=== PATIENT | female | born 1950 | race African-American/Black ===

== ENCOUNTER → 2022-09-03 | Outpatient (CLI) | payer OTHER ==
[~2022-09-03] MED LIST: CEPH500C PO; TRAM-297 PO
[2022-09-03 10:21] LABS: Basophils # (auto) 0 10 ^3/uL (0-0.2); Basophils % (auto) 1.1 % (0.0-2.0); Eosinophils # (auto) 0.4 10 ^3/uL (0-0.8); Eosinophils % (auto) 8.8 % (0.0-7.0); Hematocrit 37.6 % (36.0-46.0); Hemoglobin 12.5 g/dL (12.2-16.2); Lymphocytes # (auto) 1.4 10 ^3/uL (0.4-5.4); Lymphocytes % (auto) 31.7 % (10.0-50.0); Mean Corpuscular Hemoglobin 28.3 pg (28.0-32.0); Mean Corpuscular Hgb Conc. 33.2 g/dL (32.0-36.0); Mean Corpuscular Volume 85.2 fL (80.0-100.0); Monocytes # (auto) 0.4 10 ^3/uL (0-1.3); Monocytes % (auto) 8.9 % (0.0-12.0); Neutrophils # (auto) 2.2 10 ^3/uL (1.6-8.6); Neutrophils % (auto) 49.5 % (37.0-80.0); Nucleated Red Blood Cells % 0.1 %; Red Blood Cells 4.42 10^6/uL (4.0-5.20); White Blood Cell 4.4 10^3/uL (4.4-10.8)
[2022-09-03 10:40] LABS: Urine Bacteria NONE SEEN /hpf (None Seen); Urine Blood Negative /uL (Negative); Urine Mucus FEW (None Seen); Urine Specific Gravity 1.024 (1.001-1.035); Urine WBC 2 /hpf (0 - 5)
[2022-09-03 11:06] LABS: Potassium 3.5 mmol/L (3.5-5.1)
[2022-09-03 11:12] LABS: Folate (Folic Acid) 11.81 ng/mL (5.38-24)
[2022-09-03 11:16] LABS: Albumin 3.6 g/dL (3.4-5.0); BUN/Creatinine Ratio 17.9 (10.0-20.0); Bilirubin, Total 0.8 mg/dL (0.2-1.0); Magnesium 2.3 mg/dL (1.6-2.6); Total Protein 7.9 g/dL (6.4-8.2); Uric Acid 3.7 mg/dL (2.6-6.0)
== END | disposition home or self-care (01) ==
LOC: LAB 09:51
PROVIDERS: ATTEND Internal Medicine
DX: I10 Essential (primary) hypertension (principal); E03.9 Hypothyroidism, unspecified; M32.9 Systemic lupus erythematosus, unspecified; M17.9 Osteoarthritis of knee, unspecified; M19.012 Primary osteoarthritis, left shoulder; M77.9 Enthesopathy, unspecified; G43.909 Migraine, unspecified, not intractable, without status migrainosus; M19.90 Unspecified osteoarthritis, unspecified site; N39.0 Urinary tract infection, site not specified; M65.312 Trigger thumb, left thumb; N89.8 Other specified noninflammatory disorders of vagina
CPT/HCPCS: 36415; 80053; 80061; 81001; 82306; 82607; 82746; 83036; 83735; 84443; 84550; 85025; 87086

== ENCOUNTER 2022-09-04 09:33 | Emergency (ER) | payer OTHER ==
[~2022-09-04] VITALS: Ht 170.2 cm; Wt 81.4 kg
[~2022-09-04 09:33] MED LIST changes: -CEPH500C PO
[2022-09-04 10:20] VITALS: BP 121/76
[2022-09-04] MEDS ORDERED: CEPH500C PO (10:23)
== END 2022-09-04 10:35 | disposition home or self-care (01) ==
LOC: ER 09:33
DX: S91.011A Laceration without foreign body, right ankle, initial encounter (principal); J45.909 Unspecified asthma, uncomplicated; I10 Essential (primary) hypertension; W26.8XXA Contact with other sharp object(s), not elsewhere classified, initial encounter; Y93.9 Activity, unspecified; Y92.89 Other specified places as the place of occurrence of the external cause; Y99.8 Other external cause status

== ENCOUNTER → 2022-12-06 | Outpatient (CLI) | payer OTHER ==
[~2022-12-06] MED LIST changes: +CEPH500C PO
[2022-12-06 09:12] LABS: Basophils # (auto) 0 10 ^3/uL (0-0.2); Basophils % (auto) 0.8 % (0.0-2.0); Eosinophils # (auto) 0.5 10 ^3/uL (0-0.8); Eosinophils % (auto) 10.8 % (0.0-7.0); Hematocrit 37.8 % (36.0-46.0); Hemoglobin 12.4 g/dL (12.2-16.2); Lymphocytes # (auto) 1.5 10 ^3/uL (0.4-5.4); Mean Corpuscular Hemoglobin 28.3 pg (28.0-32.0); Mean Corpuscular Hgb Conc. 32.7 g/dL (32.0-36.0); Mean Corpuscular Volume 86.6 fL (80.0-100.0); Monocytes # (auto) 0.4 10 ^3/uL (0-1.3); Monocytes % (auto) 8.4 % (0.0-12.0); Neutrophils # (auto) 2.1 10 ^3/uL (1.6-8.6); Red Blood Cells 4.36 10^6/uL (4.0-5.20); White Blood Cell 4.5 10^3/uL (4.4-10.8)
[2022-12-06 09:23] LABS: Urine Bacteria FEW /hpf (None Seen); Urine Blood TRACE /uL (Negative); Urine Clarity HAZY (Clear); Urine Color Yellow (Yellow); Urine Mucus FEW (None Seen); Urine Protein, UAD TRACE (Negative); Urine WBC 3 /hpf (0 - 5)
[2022-12-06 09:48] LABS: Alanine Aminotransferase 20 U/L (7-40); Albumin 4.1 g/dL (3.2-4.8); Alkaline Phosphatase 86 U/L (46-116); Anion Gap 6 (5-15); Aspartate Aminotransferase 25 U/L (13-40); Calcium 9.3 mg/dL (8.5-10.1); Carbon Dioxide 28 mmol/L (20-30); Chloride 108 mmol/L (98-107); Cholesterol 141 mg/dL (< 200); Glucose 85 mg/dL (74-106); LDL Cholesterol 87 mg/dL (< 100); Potassium 3.5 mmol/L (3.5-5.1); Sodium 142 mmol/L (136-145)
[2022-12-06 09:49] LABS: BUN/Creatinine Ratio 17.2 (10.0-20.0); Blood Urea Nitrogen 11 mg/dL (9-23); HDL Cholesterol 45 mg/dL (40-59); Triglycerides 55 mg/dL (< 150)
[2022-12-06 09:50] LABS: Bilirubin, Total 0.7 mg/dL (0.2-1.0)
[2022-12-06 09:51] LABS: Total Protein 7.3 g/dL (5.7-8.2)
[2022-12-06 12:25] LABS: Uric Acid 3.8 mg/dL (3.1-7.8)
[2022-12-06 13:59] LABS: Folate (Folic Acid) 17.85 ng/mL (>5.38)
== END | disposition home or self-care (01) ==
LOC: LAB 08:37
PROVIDERS: ATTEND Internal Medicine
DX: E61.2 Magnesium deficiency (principal); R78.89 Finding of other specified substances, not normally found in blood; R68.89 Other general symptoms and signs; R73.09 Other abnormal glucose; R94.6 Abnormal results of thyroid function studies; E79.0 Hyperuricemia without signs of inflammatory arthritis and tophaceous disease; E85.9 Amyloidosis, unspecified; R82.90 Unspecified abnormal findings in urine; D51.9 Vitamin B12 deficiency anemia, unspecified
CPT/HCPCS: 36415; 80053; 80061; 81001; 82306; 82607; 82746; 83036; 83735; 84443; 84550; 85025; 87086

== ENCOUNTER → 2023-09-05 | Outpatient (CLI) | payer OTHER ==
[2023-09-05 09:07] LABS: Urine Bacteria None Seen /hpf (None Seen)
[2023-09-05 09:09] LABS: Basophils # (auto) 0 10 ^3/uL (0-0.2); Eosinophils # (auto) 0.5 10 ^3/uL (0-0.8); Eosinophils % (auto) 5.9 % (0.0-7.0); Hematocrit 35.7 % (36.0-46.0); Hemoglobin 12.1 g/dL (12.2-16.2); Lymphocytes # (auto) 0.5 10 ^3/uL (0.4-5.4); Lymphocytes % (auto) 7.1 % (10.0-50.0); Mean Corpuscular Hemoglobin 29.1 pg (28.0-32.0); Mean Corpuscular Hgb Conc. 33.8 g/dL (32.0-36.0); Mean Corpuscular Volume 86.3 fL (80.0-100.0); Monocytes # (auto) 1.5 10 ^3/uL (0-1.3); Neutrophils # (auto) 5.2 10 ^3/uL (1.6-8.6); Nucleated Red Blood Cells % 0.1 %; Red Blood Cells 4.14 10^6/uL (4.0-5.20); Red Cell Distribution Width 14.4 % (11.8-14.3); White Blood Cell 7.7 10^3/uL (4.4-10.8)
[2023-09-05 09:54] LABS: Urine Blood 3+ /uL (Negative); Urine Budding Yeast MANY /hpf (None Seen); Urine Clarity Ex.Turbid (Clear); Urine Color Light-Brown (Yellow); Urine Protein, UAD 2+ (Negative); Urine Urobilinogen Normal (Negative); Urine WBC 3448 /hpf (0 - 5); Urine WBC Clumps PRESENT /hpf (None Seen)
[2023-09-05 10:02] LABS: Alanine Aminotransferase 14 U/L (7-40); Albumin 4.1 g/dL (3.2-4.8); Alkaline Phosphatase 81 U/L (46-116); Anion Gap 6 (5-15); Aspartate Aminotransferase 16 U/L (13-40); BUN/Creatinine Ratio 18.6 (10.0-20.0); Blood Urea Nitrogen 13 mg/dL (9-23); Calcium 9.7 mg/dL (8.5-10.1); Carbon Dioxide 27 mmol/L (20-30); Chloride 109 mmol/L (98-107); Cholesterol 144 mg/dL (< 200); Glucose 93 mg/dL (74-106); HDL Cholesterol 48 mg/dL (40-59); LDL Cholesterol 85 mg/dL (< 100); Potassium 3.2 mmol/L (3.5-5.1); Sodium 142 mmol/L (136-145); Triglycerides 54 mg/dL (< 150)
[2023-09-05 10:03] LABS: Bilirubin, Total 0.6 mg/dL (0.2-1.0)
[2023-09-05 10:14] LABS: Uric Acid 4.1 mg/dL (3.1-7.8)
[2023-09-05 11:47] LABS: Free T3 3.26 pg/mL (2.3-4.2)
[2023-09-05 11:48] LABS: Free T4 (Free Thyroxine) 1.25 ng/dL (0.89-1.76); T3 Total 1.02 ng/mL (0.60-1.81)
[2023-09-05 11:50] LABS: Folate (Folic Acid) 11.93 ng/mL (>5.38)
== END | disposition home or self-care (01) ==
LOC: LAB 08:50
PROVIDERS: ATTEND Nurse Practitioner Family
DX: J45.41 Moderate persistent asthma with (acute) exacerbation (principal); G43.909 Migraine, unspecified, not intractable, without status migrainosus; M06.9 Rheumatoid arthritis, unspecified; G89.4 Chronic pain syndrome; M08.00 Unspecified juvenile rheumatoid arthritis of unspecified site; E03.9 Hypothyroidism, unspecified; N39.0 Urinary tract infection, site not specified; Z68.28 Body mass index [BMI] 28.0-28.9, adult
CPT/HCPCS: 36415; 80053; 80061; 81001; 82306; 82607; 82746; 83036; 83735; 84439; 84443; 84480; 84481; 84550; 85025; 87086; 87088; 87186

== ENCOUNTER → 2023-09-26 | Outpatient (CLI) | payer OTHER ==
[2023-09-26 07:41] LABS: Hematocrit 39.2 % (36.0-46.0); Hemoglobin 12.8 g/dL (12.2-16.2); Mean Corpuscular Hemoglobin 28.2 pg (28.0-32.0); Mean Corpuscular Hgb Conc. 32.7 g/dL (32.0-36.0); Mean Corpuscular Volume 86.4 fL (80.0-100.0); Red Blood Cells 4.54 10^6/uL (4.0-5.20); Red Cell Distribution Width 14.5 % (11.8-14.3); White Blood Cell 3.8 10^3/uL (4.4-10.8)
[2023-09-26 07:57] LABS: Basophils % (manual) 0 (0.0-2.0); Blast Cells 0; Metamyelocytes % 0; Myelocytes % 0; Promyelocytes % 0; Reactive Lymphocytes 0
[2023-09-26 07:59] LABS: Urine Bacteria MANY /hpf (None Seen); Urine Blood Negative /uL (Negative); Urine Color Yellow (Yellow); Urine Mucus FEW (None Seen); Urine Protein, UAD 1+ (Negative); Urine Specific Gravity 1.028 (1.001-1.035); Urine Urobilinogen Normal (Negative); Urine WBC 9 /hpf (0 - 5)
[2023-09-26 08:19] LABS: Protein, Urine 55.7 mg/dL (0.0-11.9)
[2023-09-26 08:22] LABS: Creatinine, Urine 169.49 mg/dL (30.0-125.0); Urine Protein/Creatinine Ratio 0.33
[2023-09-26 08:23] LABS: Alanine Aminotransferase 16 U/L (7-40); Albumin 4.2 g/dL (3.2-4.8); Alkaline Phosphatase 88 U/L (46-116); Anion Gap 6 (5-15); Aspartate Aminotransferase 16 U/L (13-40); BUN/Creatinine Ratio 17.6 (10.0-20.0); Blood Urea Nitrogen 12 mg/dL (9-23); CRP High Sensitivity 0.11 mg/dL (<1.0); Calcium 9.5 mg/dL (8.7-10.4); Carbon Dioxide 27 mmol/L (20-30); Chloride 109 mmol/L (98-107); Glucose 93 mg/dL (74-106); Potassium 3.3 mmol/L (3.5-5.1); Sodium 142 mmol/L (136-145)
[2023-09-26 08:24] LABS: Bilirubin, Total 0.6 mg/dL (0.2-1.0); Total Protein 7.2 g/dL (5.7-8.2)
[2023-09-26 08:37] LABS: Urine Clarity Hazy (Clear)
[2023-09-26 08:39] LABS: Erythrocyte Sedimentation Rate 16 mm/hr (0-20)
[2023-09-26 08:56] LABS: Band Neutrophils % (manual) 1; Eosinophils % (manual) 19 (0-7); Lymphocytes % (manual) 34 (10.0-50.0); Monocytes % (manual) 9 (0-12)
[2023-09-26 08:58] LABS: Anisocytosis Slight; Platelet Estimate Adequate
[2023-09-28 13:07] LABS: QuantiFERON-TB Gold Plus Negative (Negative)
== END | disposition home or self-care (01) ==
LOC: LAB 07:11
PROVIDERS: ATTEND Internal Medicine Rheumatology
DX: Z11.1 Encounter for screening for respiratory tuberculosis (principal); M32.10 Systemic lupus erythematosus, organ or system involvement unspecified; R53.83 Other fatigue; Z79.899 Other long term (current) drug therapy
CPT/HCPCS: 36415; 80053; 81001; 82570; 84156; 85007; 85027; 85613; 85652; 85670; 85705; 85732; 86141

== ENCOUNTER 2024-03-17 02:41 | Inpatient (IN) | payer OTHER ==
[~2024-03-17] VITALS: Ht 170.2 cm; Wt 88.2 kg
[2024-03-17] VITALS (12 sets, daily range): BP systolic 122–148; BP diastolic 79–99; PULSE 64–89; RESP 16–18; TEMP 97.5–98.3; O2SAT 90–100
[2024-03-17] MEDS ORDERED: NITROGLYCERIN 0.4 MG SL TAB SL PRN (05:15)
--- NOTE | 2024-03-17 05:24 | DVHHPRES ---
History of Present Illness Resident Creating Document: ROSANNE INGRAM RESIDENT History of Present Illness Patient is a 73-year-old female with past medical history of lupus, hypertension, hypothyroidism, dyslipidemia, asthma, migraine, who was transferred from [facility]. According to the patient, for the past 1 month she has been experiencing episodic chest pain, she notes exertion and climbing the stairs precipitates her chest pain, rest and lying down relieves her chest pain, pain is nonradiating without any exacerbating or relieving factors. Along with the chest pain, for the last 2-3 days she has been experiencing numbness and tingling in bilateral upper and lower extremities which is what prompted this visit to the hospital. Patient was noted to have an elevated D-dimer at [facility], where they conducted a CT angiography and ruled out pulmonary embolism. On review of systems, patient is complaining of fatigue, chills, sore throat, productive cough with clear sputum. Past Medical History lupus, hypertension, hypothyroidism, dyslipidemia, asthma, migraine Past Surgical History Denies Smoke: No ALCOHOL: none Drugs: None Lives: with Family Review of Systems Constitutional: Yes: Malaise; No: Fever, Chills, Sweats, Weakness, Other Eyes: No: Pain, Vision change, Conjunctivae inflammation, Eyelid inflammation, Other, Redness ENT: Nose congestion, Throat pain; No: Ear pain, Ear discharge, Nose pain, Nose discharge, Mouth pain, Mouth swelling, Throat swelling, Other Respiratory: Cough, Shortness of breath, SOB with excertion, Sputum; No: Dry, Wheezing, Hemoptysis, Pleuritic Pain, Wheezing, Other Cardiovascular: Chest Pain; No: Palpitations, Orthopnea, Paroxysmal Noc. Dyspnea, Edema, Lt Headedness, Other Gastrointestinal: No: Nausea, Vomiting, Abdominal Pain, Diarrhea, Constipation, Melena, Hematochezia, Other Genitourinary: No Dysuria, No Frequency, No Incontinence, No Hematuria, No Retention, No Other Musculoskeletal: No: other, neck pain, shoulder pain, arm pain, back pain, hand pain, leg pain, foot pain Skin: No: Rash, Lesions, Jaundice, Bruising, Other Neurological: No: Weakness, Numbness, Incoordination, Change in speech, Confusion, Seizures, Other Allergies: Coded Allergies: Penicillins (Unverified Allergy, Unknown, 03/17/24) Exam General Appearance: Alert, Oriented X3, Cooperative, No acute distress HEENT: Atraumatic, PERRLA, EOMI, Mucous membr. moist/pink Respiratory: Clear to auscultation, Normal air movement Cardiovascular: Regular rate, Normal S1, Normal S2, No murmurs Abdominal: Normal bowel sounds, Soft, No tenderness Extremities: No clubbing, No edema, Normal pulses, No tenderness/swelling Skin: No rashes, No breakdown, No significant lesion Neuro: Normal speech, Strength at 5/5 X4 ext, Sensation intact Psych/Mental Status: Mental status NL, Mood NL Assessment/Plan Assessment/Plan Chest pain, likely stable angina? r/o ACS Pulmonary embolism ruled out - CT pulmonary angiography: There is no evidence of pulmonary embolism within t he main or segmental pulmonary arteries. There are no significant infiltrates. - serial troponins 33, 30 Bronchial Asthma - ipratropium and albuterol med nebs Q 8 hours as needed Hypertension Dyslipidemia Hypothyroidism - resumed home medication amlodipine, atorvastatin, levothyroxine History of lupus - monitor Goals of care: Full code, discussed for >16 minutes on 03/17/2024 Plan discussed with patient Plan discussed with Dr. Arreola Plan discussed with: Patient, Other (RN) Date of Service: Mar 17, 2024 Billing Provider: ANJU ARREOLA MD Common Visit Codes: [id number] INP/OBS CARE (HIGH) Secondary Visit Codes: [id number] CARE PLAN 30 MINUTES ROSANNE INGRAM RESIDENT Mar 17, 2024 05:24 ANJU ARREOLA MD Mar 17, 2024 10:10
[2024-03-17] MEDS ORDERED: ALBUTEROL SULF 2.5 MG/0.5ML(0.5%) NEB SOLN NEB SCH (06:00)
[2024-03-17] MEDS: LEVOTHYROXINE SODIUM 100 MCG TAB PO SCH (06:00)
[2024-03-17] MEDS: ASPirin 325 MG TAB PO ONE (06:45)
[2024-03-17] MEDS: IPRATROPIUM BROM 0.5 MG/2.5ML INH SOL NEB PRN (06:52)
[2024-03-17] MEDS: ALBUTEROL SULF 2.5 MG/0.5ML(0.5%) NEB SOLN NEB PRN (06:52)
[2024-03-17] MEDS ORDERED: AZIT500T66 PO (06:55)
[2024-03-17] MEDS ORDERED: ATOR20TA PO (06:55)
[2024-03-17] MEDS ORDERED: AMLO1TAB22 PO (06:55)
[2024-03-17] MEDS ORDERED: ALBUAER3 IN (06:55)
[2024-03-17] MEDS ORDERED: LEVO-849 PO (06:55)
[2024-03-17] MEDS ORDERED: HYDR-4798 PO (06:55)
[2024-03-17 07:14] LABS: Anion Gap 7 (5-15); Calcium 10.3 mg/dL (8.7-10.4); Carbon Dioxide 26 mmol/L (20-31); Sodium 143 mmol/L (136-145)
[2024-03-17 07:19] LABS: Chloride 110 mmol/L (98-107); Glucose 92 mg/dL (74-106); Potassium 3.5 mmol/L (3.5-5.1)
[2024-03-17 07:20] LABS: BUN/Creatinine Ratio 13.7 (10.0-20.0); Blood Urea Nitrogen 10 mg/dL (9-23)
[2024-03-17 07:41] LABS: Basophils # (auto) 0 10 ^3/uL (0-0.2); Basophils % (auto) 0.7 % (0.0-2.0); Eosinophils # (auto) 0.2 10 ^3/uL (0-0.8); Eosinophils % (auto) 5.6 % (0.0-7.0); Hematocrit 37.8 % (36.0-46.0); Hemoglobin 12.6 g/dL (12.2-16.2); Lymphocytes # (auto) 1.2 10 ^3/uL (0.4-5.4); Lymphocytes % (auto) 27.8 % (10.0-50.0); Mean Corpuscular Hemoglobin 28.9 pg (28.0-32.0); Mean Corpuscular Hgb Conc. 33.4 g/dL (32.0-36.0); Mean Corpuscular Volume 86.4 fL (80.0-100.0); Monocytes # (auto) 0.4 10 ^3/uL (0-1.3); Monocytes % (auto) 8.9 % (0.0-12.0); Neutrophils # (auto) 2.5 10 ^3/uL (1.6-8.6); Platelet Count (auto) 256 10^3/uL (140-450); Red Blood Cells 4.38 10^6/uL (4.0-5.20); Red Cell Distribution Width 14.7 % (11.8-14.3); White Blood Cell 4.4 10^3/uL (4.4-10.8)
[2024-03-17 07:48] LABS: LDL Cholesterol 93 mg/dL (< 100); Triglycerides 37 mg/dL (< 150)
[2024-03-17 07:50] LABS: Cholesterol 147 mg/dL (< 200); HDL Cholesterol 50 mg/dL (40-59)
--- NOTE | 2024-03-17 09:51 | DVH ---
CHEST RADIOGRAPH Indication: dyspnea Technique: Single frontal view of the chest was obtained Comparison: None FINDINGS: The cardiac silhouette is enlarged. The lungs demonstrate perihilar airspace opacities. The pulmonary vasculature is prominent. There is no pleural effusion.. There is no pneumothorax. IMPRESSION: 1. Cardiomegaly with pulmonary vascular congestion and bilateral perihilar airspace opacities. 2. << >>
--- NOTE | 2024-03-17 10:23 | DVHINCON2 ---
[facility] 03/17/24 1023: Date Seen: Mar 17, 2024 Referring Physician MD Max Reason for Consultation Stable angina History of Present Illness This is a pleasant 73-year-old female who get transferred from [facility] in the setting of chest pain for two weeks. The patient complains of intermittent chest pain described as substernal, nonradiating, tightness like, worse with exertion, and associated with mild shortness of breath. At the aforementioned facility she underwent a 12 lead electrocardiogram revealing a normal sinus rhythm without evidence of ischemia, serial troponin levels deemed to be negative, and a CT angio chest with contrast negative for pulmonary emboli/thoracic aortic aneurysm/infiltrates. Significant medical history includes hypertension, dyslipidemia, hypothyroidism, asthma, migraine headaches, lupus, or obesity. Past Medical History Past medical history reviewed. No other significant than mentioned above. Past Surgical History Past medical history reviewed. No other significant than mentioned above. Family History: Cerebrovascular accident (CVA) G8 MOTHER Diabetes mellitus G8 MOTHER FH: bipolar disorder Grandson FH: schizophrenia Grandson Family History Family history reviewed. Father from major myocardial infarction in his 90s. Social History Denies the use of illicit drugs, alcohol, or tobacco use. Allergies: Coded Allergies: Penicillins (Unverified Allergy, Unknown, 03/17/24) Home Meds Active Scripts Cephalexin Monohydrate (Cephalexin) 500 Mg Cap, 1 CAP PO QID, #28 CAP Prov:REGGIE MOYA 09/04/22 Tramadol Hcl (Ultram) 50 Mg Tab, 1 TAB PO BID, #20 TAB Prov:REGGIE MOYA 12/24/21 Reported Medications Amlodipine Besylate (Amlodipine Besylate) 5 Mg Tab, 5 MG PO DAILY for 30 Days, MG 03/17/24 Albuterol Sulfate (VENTOLIN MDI) 90 Mcg Ih, 90 MCG IN, INH 03/17/24 Levothyroxine Sodium (SYNTHROID TABLET) 100 Mcg Tb, 1 TAB PO DAILY, #30 TAB 5 Refills 03/17/24 Azithromycin (Azithromycin) 500 Mg Tab, 500 MG PO DAILY 03/17/24 Hydrocodone-Acetaminophen (Hydrocodone Bitartrate/AC 10-325 mg) 1 Tab Tab, 1 TAB PO, TAB 03/17/24 Atorvastatin Calcium (Lipitor) 20 Mg Tab, 1 TAB PO DAILY, #90 TAB 1 Refill 03/17/24 Home Meds Home medications reviewed. Current Medications Current Medications Medications (Trade) Dose Ordered Sig/Darius Route PRN Reason Start Time Stop Time Status Last Admin Nitroglycerin (Ntrostat Sublingual) 0.4 mg Q5MINP PRN SL FOR CHEST PAIN 03/17/24 05:15 Levothyroxine Sodium (Synthroid Tablet) 100 mcg QAM@0600 PO 03/17/24 06:00 03/17/24 06:00 Ipratropium [place] (Atrovent Medneb) 0.5 mg Q8HPRN PRN NEB SHORTNESS OF BREATH 03/17/24 05:15 03/17/24 06:52 Albuterol (Ventolin Medneb) 2.5 mg Q8HR NEB 03/17/24 06:00 03/17/24 05:52 DC Atorvastatin Calcium (Lipitor) 20 mg HS PO 03/17/24 22:00 03/17/24 06:50 DC Amlodipine Besylate (Norvasc Tablet) 10 mg DAILY PO 03/17/24 10:00 Albuterol (Ventolin Medneb) 2.5 mg Q8HR PRN NEB sob wheeze 03/17/24 06:00 03/17/24 06:52 Aspirin 81 mg DAILY PO 03/18/24 10:00 Atorvastatin Calcium (Lipitor) 40 mg HS PO 03/17/24 22:00 Review of Systems Constitutional: No symptom reported Ears, Nose, & Throat: No symptom reported Eyes: No symptom reported Neurological: No symptoms reported Pulmonary/Respiratory: No symptom reported Cardiovascular: Chest pain Gastrointestinal: No symptom reported Genitourinary: No symptom reported Musculoskeletal: No symptom reported Skin: No symptom reported Psychiatric: No symptom reported Endocrine: No symptom reported Hemotologic/Lymphatic: No symptom reported Vital Signs Vital Signs Date Time Temp Pulse Resp B/P (MAP) Pulse Ox O2 Delivery O2 Flow Rate FiO2 03/17/24 09:00 97.5 86 16 122/80 (94) 95 97.5 03/17/24 07:09 0.0 21 03/17/24 06:57 Room Air* Physical Exam General Appearance: Cooperative. Well developed. Well nourished. In no acute distress Head Exam: Normal inspection Neck Exam: Normal inspection. Non-tender. Normal alignment Pulmonary/Respiratory: Chest non-tender. Clear bilateral breath sounds Cardiovascular/Chest: Regular rate and rhythm. S1, S2. NSR. No murmurs. No JVD. Peripheral Pulses: 2+ Radial (R). 2+ Radial (L). 2+ Pedal (R). 2+ Pedal (L) Abdominal Exam: Normal bowel sounds. Soft. Nontender. No hepatospenomegaly. No masses Ankle Exam: Negative ankle edema Lower extremities: Negative lower extremity edema Neuro/Mental Status: A&O x4. Coherent Thoughts/Psych: Normal thought pattern. Appropriate mood and affect. Good judgement and insight Appearance: In no acute distress Skin Exam: Normal inspection. Normal color. Warm. Dry Labs/Diagnostic Data Labs Test 03/17/24 08:00 03/17/24 06:40 Range/Units Troponin I High Sensitivity 17 </=34 ng/L White Blood Count 4.4 4.4-10.8 10^3/uL Red Blood Count 4.38 4.0-5.20 10^6/uL Hemoglobin 12.6 12.2-16.2 g/dL Hematocrit 37.8 36.0-46.0 % Mean Corpuscular Volume 86.4 80.0-100.0 fL Mean Corpuscular Hemoglobin 28.9 28.0-32.0 pg Mean Corpuscular Hemoglobin Concent 33.4 32.0-36.0 g/dL Red Cell Distribution Width 14.7 H 11.8-14.3 % Platelet Count 256 140-450 10^3/uL Mean Platelet Volume 7.8 6.9-10.8 fL Neutrophils (%) (Auto) 57.0 37.0-80.0 % Lymphocytes (%) (Auto) 27.8 10.0-50.0 % Monocytes (%) (Auto) 8.9 0.0-12.0 % Eosinophils (%) (Auto) 5.6 0.0-7.0 % Basophils (%) (Auto) 0.7 0.0-2.0 % Neutrophils # (Auto) 2.5 1.6-8.6 10 ^3/uL Lymphocytes # (Auto) 1.2 0.4-5.4 10 ^3/uL Monocytes # (Auto) 0.4 0-1.3 10 ^3/uL Eosinophils # (Auto) 0.2 0-0.8 10 ^3/uL Basophils # (Auto) 0 0-0.2 10 ^3/uL Nucleated Red Blood Cells 0.0 % Sodium Level 143 136-145 mmol/L Potassium Level 3.5 3.5-5.1 mmol/L Chloride Level 110 H 98-107 mmol/L Carbon Dioxide Level 26 20-31 mmol/L Anion Gap 7 5-15 Blood Urea Nitrogen 10 9-23 mg/dL Creatinine 0.73 0.550-1.02 mg/dL Glomerular Filtration Rate Calc 87 >90 mL/min BUN/Creatinine Ratio 13.7 10.0-20.0 Serum Glucose 92 74-106 mg/dL Calcium Level 10.3 8.7-10.4 mg/dL B-Type Natriuretic Peptide 45.11 0-100 pg/mL Triglycerides Level 37 < 150 mg/dL Cholesterol Level 147 < 200 mg/dL LDL Cholesterol 93 < 100 mg/dL HDL Cholesterol 50 40-59 mg/dL Vitamin B12 Level 526 211-911 pg/mL Thyroid Stimulating Hormone (TSH) 1.11 0.55-4.78 uIU/mL Assessment Chest pain rule out coronary artery disease Pertinent family history for ischemic disease Hypertension Dyslipidemia Hypothyroidism Lupus Plan/Recommendation (Dr. Krishna) The patient with stable angina, multiple risk factors, pertinent family history for CV disease, and a moderate heart score is scheduled to undergo a transthoracic echocardiogram and coronary angiogram with cardiac catheterization on 03/19/2024. Risks and benefits of the procedure were discussed with the patient who agrees to proceed with intervention. All questions answered. In the meantime, continue single antiplatelet therapy and lipid lowering agent. M onitor ECG changes and notify. Chest pain protocol. Initiate DVT/VTE prophylaxis. Thank you for allowing us to participate in this patient's care. Please call if you have any questions or concerns. This medical document was created using an electronic medical record system with voice recognition software and computerized dictation system. Although this document has been carefully reviewed, there might still be some phonetic and typographical errors. Occasional wrong-word or ``sound-alike substitutions may have occurred due to the inherent limitations of voice recognition software. These areas are purely typographical due to imperfections of the software programs and do not reflect any compromise in the patient's medical care. Please read the chart carefully and recognize, using context, where these substitutions have occurred. Plan discussed with: Patient, Other NYHA Physical activity limitations: NA Date of Service: Mar 17, 2024 Billing Provider: [facility] Common Codes: [id number] INP/OBS CARE (High) TERENCE KRISHNA MD 03/17/24 1422: Family History: Cerebrovascular accident (CVA) G8 MOTHER Diabetes mellitus G8 MOTHER FH: bipolar disorder Grandson FH: schizophrenia Grandson Allergies: Coded Allergies: Penicillins (Unverified Allergy, Unknown, 03/17/24) Home Meds Active Scripts Cephalexin Monohydrate (Cephalexin) 500 Mg Cap, 1 CAP PO QID, #28 CAP Prov:REGGIE MOYA 09/04/22 Tramadol Hcl (Ultram) 50 Mg Tab, 1 TAB PO BID, #20 TAB Prov:REGGIE MOYA 12/24/21 Reported Medications Amlodipine Besylate (Amlodipine Besylate) 5 Mg Tab, 5 MG PO DAILY for 30 Days, MG 03/17/24 Albuterol Sulfate (VENTOLIN MDI) 90 Mcg Ih, 90 MCG IN, INH 03/17/24 Levothyroxine Sodium (SYNTHROID TABLET) 100 Mcg Tb, 1 TAB PO DAILY, #30 TAB 5 Refills 03/17/24 Azithromycin (Azithromycin) 500 Mg Tab, 500 MG PO DAILY 03/17/24 Hydrocodone-Acetaminophen (Hydrocodone Bitartrate/AC 10-325 mg) 1 Tab Tab, 1 TAB PO, TAB 03/17/24 Atorvastatin Calcium (Lipitor) 20 Mg Tab, 1 TAB PO DAILY, #90 TAB 1 Refill 03/17/24 Plan/Recommendation high pretestprob for cad given clinical history proceed with [facility] Plan discussed with: Patient BUIJOSIE PIERCERAJEEV FONSECA Mar 17, 2024 10:23 TERENCE KRISHNA MD Mar 17, 2024 14:22
[2024-03-17] MEDS: amLODIPine BESYLATE 5 MG TAB PO SCH (10:28)
--- NOTE | 2024-03-17 14:18 | DVHSR ---
APPROVED REPORT EXAM: Two-dimensional and M-mode echocardiogram with Doppler, color Doppler and Bubble Study. Blood Pressure: 122/80 mmHg INDICATION Chest Pain RISK FACTORS Height: 5' 7", Weight: 189 DIMENSIONS LVDd5.4 (3.8-5.7cm)LA (2D)4.7 (1.9-4.0cm)Aortic Root3.4 (2.0-3.7cm) LVDs4.4 (2.5-4.0cm)LA (MM) (1.9-4.0cm)Aortic Cusp Exc2.2 (1.5-2.0cm) EF (%) 35.0 (55-70%)Rt. Atrium4.5 (1.9-4.0cm)Asc. Aorta cm IVSd1.1 (0.7-1.1cm)RV (D) (1.8-2.4cm) PWd1.1 (0.7-1.1cm) Mitral Valve MitralMitral Stenosis E wave0.50m/sMV Mean GR.mmHg A wave1.00m/sMV Peak GR.mmHg E/A ratio0.52D MVAcm2 Aortic Valve Aortic ValveAortic Stenosis V10.70m/Nicole Mean GR.3mmHg V21.20m/Nicole Peak GR.6mmHg LVOT Diameter2.4 (1.8-2.4cm)Doppler AVA2.64cm2 Pulmonic Valve V20.50m/s Conclusion lvef 55% by visual estimate normal rv function left atrium enlarged no severe valve abnormalities noted
[2024-03-17] MEDS: FUROSEMIDE 20 MG/2 ML VIAL IV ONE (17:31)
[2024-03-17] MEDS: ENOXAPARIN SOD 40 MG/0.4 ML SYRINGE SC ONE (17:31)
[2024-03-17] MEDS: LACTULOSE 20Gm/30ML SOLN PO ONE (17:32)
[2024-03-17] MEDS: POTASSIUM CHL 20 Meq TABLET PO ONE (17:32)
[2024-03-17] MEDS: ATORVASTATIN 20 MG TAB PO SCH (21:21)
[2024-03-17] MEDS ORDERED: ATORVASTATIN 20 MG TAB PO SCH (22:00)
[2024-03-18] VITALS (10 sets, daily range): BP systolic 108–149; BP diastolic 66–93; PULSE 67–85; RESP 16–20; TEMP 97.7–98.3; O2SAT 93–99
[2024-03-18] MEDS: HYDROcodone-ACET 5/325MG TAB PO PRN (05:22)
[2024-03-18 07:06] LABS: Alanine Aminotransferase 15 U/L (7-40); Alkaline Phosphatase 82 U/L (46-116); Anion Gap 8 (5-15); Aspartate Aminotransferase 19 U/L (13-40); BUN/Creatinine Ratio 19.1 (10.0-20.0); Bilirubin, Total 0.8 mg/dL (0.2-1.0); Blood Urea Nitrogen 13 mg/dL (9-23); Carbon Dioxide 24 mmol/L (20-31); Glucose 90 mg/dL (74-106); Potassium 4.2 mmol/L (3.5-5.1); Sodium 142 mmol/L (136-145); Total Protein 6.7 g/dL (5.7-8.2)
[2024-03-18 07:07] LABS: Calcium 10.5 mg/dL (8.7-10.4); Chloride 110 mmol/L (98-107)
[2024-03-18 07:20] LABS: INR 0.98 (0.9-1.15); Partial Thromboplastin Time 27.3 SEC (24.5-34.5); Prothrombin Time 10.4 sec (9.3-11.8)
--- NOTE | 2024-03-18 09:28 | DVHPN2 ---
Subjective Seen and examined at bedside, get CT CHEST. FOR LHC in AM Changes from previous H/P or p: No Changes Eyes: No Pain, No Vision change, No Conjunctivae inflammation, No Eyelid inflammation, No Other, No Redness ENT: No Ear pain, No Ear discharge, No Nose pain, No Nose discharge, No Nose congestion, No Mouth pain, No Mouth swelling, No Throat pain, No Throat swelling, No Other Cardiovascular: No Chest Pain, No Palpitations, No Orthopnea, No Paroxysmal Noc. Dyspnea, No Edema, No Lt Headedness, No Other Respiratory: No Cough, No Dry, No Shortness of breath, No SOB with excertion, No Wheezing, No Hemoptysis, No Pleuritic Pain, No Sputum, No Other Gastrointestinal: No Nausea, No Vomiting, No Abdominal Pain, No Diarrhea, No Constipation, No Melena, No Hematochezia, No Other Genitourinary: No Dysuria, No Frequency, No Incontinence, No Hematuria, No Retention, No Other Musculoskeletal: No other, No neck pain, No shoulder pain, No arm pain, No back pain, No hand pain, No leg pain, No foot pain Skin: No Rash, No Lesions, No Jaundice, No Bruising, No Other Objective Vitals Vital Signs Date Time Temp Pulse Resp B/P (MAP) Pulse Ox O2 Delivery O2 Flow Rate FiO2 03/18/24 09:15 99 Room Air 03/18/24 09:15 0 21 03/18/24 05:00 98.0 83 20 120/66 (84) 98.0 Intake/Output Intake and Output 03/18/24 07:00 Intake Total 2340 ml Output Total 4 ml Balance 2336 ml Intake Oral 2340 ml Output Urine/Stool Mix 4 ml # Voids 7 General Appearance: Alert, Oriented X3, Cooperative, No acute distress HEENT: Atraumatic Lungs: Clear to auscultation Cardiovascular: Regular rate, Normal S1, Normal S2 Abdomen: Normal bowel sounds, Soft Psych/Mental Status: Mental status NL Medications Current Medications Medications Dose Ordered Sig/Darius Route Start Time Stop Time Status Last Admin Dose Admin Nitroglycerin 0.4 mg Q5MINP PRN SL 03/17/24 05:15 Levothyroxine Sodium 100 mcg QAM@0600 PO 03/17/24 06:00 03/18/24 05:22 100 MCG Ipratropium [place] 0.5 mg Q8HPRN PRN NEB 03/17/24 05:15 03/17/24 06:52 0.5 MG Amlodipine Besylate 10 mg DAILY PO 03/17/24 10:00 03/17/24 10:28 10 MG Albuterol 2.5 mg Q8HR PRN NEB 03/17/24 06:00 03/17/24 18:13 2.5 MG Aspirin 81 mg DAILY PO 03/18/24 10:00 Atorvastatin Calcium 40 mg HS PO 03/17/24 22:00 03/17/24 21:21 40 MG Enoxaparin Sodium 40 mg DAILY SC 03/18/24 10:00 Furosemide 20 mg DAILY IV 03/18/24 10:00 Acetaminophen/ Hydrocodone Bitart 1 tab Q6HPRN PRN PO 03/18/24 04:00 03/18/24 05:22 1 TAB Laboratory Results Laboratory Tests 03/17/24 06:40 03/18/24 06:01 Chemistry Test 03/18/24 06:01 Albumin 4.0 g/dL (3.2-4.8) Calcium Level 10.5 mg/dL (8.7-10.4) H Total Protein 6.7 g/dL (5.7-8.2) Coagulation Test 03/18/24 06:01 Prothrombin Time 10.4 sec (9.3-11.8) Prothrombin Time INR 0.98 (0.9-1.15) Activated Partial Thromboplast Time 27.3 SEC (24.5-34.5) Cardiac Markers Test 03/18/24 06:01 B-Type Natriuretic Peptide 55.26 pg/mL (0-100) LFT Test 03/18/24 06:01 Alanine Aminotransferase (ALT) 15 U/L (7-40) Alkaline Phosphatase 82 U/L (46-116) Aspartate Amino Transferase (AST) 19 U/L (13-40) Total Bilirubin 0.8 mg/dL (0.2-1.0) Assessment/Plan Assessment/Plan Chest pain rule out coronary artery disease - LHC in AM Possible Bronchopneumonia- ABx, CT Chest Hypertension- Monitor and adjust meds Dyslipidemia Hypothyroidism Lupus Plan discussed with: Patient Date of Service: Mar 18, 2024 Billing Provider: ANJU LEZAMA MD Common Visit Codes: [id number] INP/OBS CARE(HIGH) ANJU LEZAMA MD Mar 18, 2024 09:28
[2024-03-18] MEDS: ENOXAPARIN SOD 40 MG/0.4 ML SYRINGE SC SCH (10:00)
--- NOTE | 2024-03-18 10:52 | DVH ---
Procedure: CT HI-RESOLUTION CHEST CT Reason for study/Clinical History: SOB/PNA Comparison Study: Chest x-ray 03/17/2024 Exam Date: 03/18/2024 10:14 AM TECHNIQUE: Multidetector CT of the chest was performed from the lung apices to the upper abdomen with out the use of intravenous contract. Axial, coronal and sagittal multiplanar reformats were performed . Radiation Dose Information: CT Dose: CTDI volume is 10.8 mGy. Dose-length product is 363 mGy*cm The dose indicators for CT are the volume Computed Tomography (CT) Dose Index (CTDIvol) and the Dose Length Product (DLP), and are measured in units of mGy and mGy-cm, respectively. These indicators are not patient dose, but values generated from the CT scanner acquisition factors. The report includes radiation exposure data for exposures received during this examination. FINDINGS: Lower neck: Thyroid appears somewhat enlarged. Questionable hypodense nodules versus beam hardening a rtifact. Lungs: No focal consolidation, pleural effusion or pneumothorax. Linear atelectasis at the right lung base. Heart/Vascular Structures: Normal heart size. Trace pericardial effusion along the anterior aspect of the heart. Mild coronary artery calcification. Mild prominence of the central pulmonary artery ( 3.3 cm). Lymph Nodes: No adenopathy Pleura: No pleural effusion or pneumothorax. Musculoskeletal: No acute osseous abnormality. Moderate multilevel degenerative disc changes througho ut the thoracic spine. Soft tissues: Normal. Upper abdomen: Partially visualized right renal cyst. There is a 6 mm cyst in the right hepatic lobe. IMPRESSION: 1. Linear atelectasis at the right lung base. Lungs are otherwise grossly clear. 2. Borderline enlargement of the pulmonary artery. Can not exclude pulmonary hypertension. 3. Thyroid appears mildly enlarged with questionable nodules. Correlate with nonemergent ultrasound. 4. Trace pericardial effusion. Radiation optimization: All CT scans at this facility use at least one of these dose optimization justina hniques: automated exposure control mA and/or kV adjustment per patient size (includes targeted exam s where dose is matched to clinical indication) or iterative reconstruction.
[2024-03-18] MEDS: ASPirin 81 mg TAB PO SCH (11:02)
[2024-03-18] MEDS: DOXYCYCLINE 100 MG TAB/CAP PO SCH (11:15)
[2024-03-18] MEDS: FUROSEMIDE 20 MG/2 ML VIAL IV SCH (11:16)
--- NOTE | 2024-03-18 13:32 | DVHPN2 ---
Progress Note Date Seen: Mar 18, 2024 Medical Necessity Reason Pt with a Central, PICC or Fol: No Subjective Patient reports: Feels better Objective vital signs Vital Sign Date Time Temp Pulse Resp B/P (MAP) Pulse Ox O2 Delivery O2 Flow Rate FiO2 03/18/24 11:16 149/93 03/18/24 10:00 95 Room Air* 0 21 03/18/24 09:00 97.9 85 18 97.9 Total Intake and Output 03/17/24 03/17/24 03/18/24 15:00 23:00 07:00 Intake Total 480 ml 1560 ml 300 ml Output Total 4 ml Balance 480 ml 1560 ml 296 ml medications Current Medications Medications Dose Ordered Sig/Darius Route Start Time Stop Time Status Last Admin Dose Admin Nitroglycerin 0.4 mg Q5MINP PRN SL 03/17/24 05:15 Levothyroxine Sodium 100 mcg QAM@0600 PO 03/17/24 06:00 03/18/24 05:22 100 MCG Ipratropium [place] 0.5 mg Q8HPRN PRN NEB 03/17/24 05:15 03/17/24 06:52 0.5 MG Amlodipine Besylate 10 mg DAILY PO 03/17/24 10:00 03/18/24 11:03 10 MG Albuterol 2.5 mg Q8HR PRN NEB 03/17/24 06:00 03/17/24 18:13 2.5 MG Aspirin 81 mg DAILY PO 03/18/24 10:00 03/18/24 11:02 81 MG Atorvastatin Calcium 40 mg HS PO 03/17/24 22:00 03/17/24 21:21 40 MG Enoxaparin Sodium 40 mg DAILY SC 03/18/24 10:00 Future hold Furosemide 20 mg DAILY IV 03/18/24 10:00 03/18/24 11:16 20 MG Acetaminophen/ Hydrocodone Bitart 1 tab Q6HPRN PRN PO 03/18/24 04:00 03/18/24 05:22 1 TAB Doxycycline Monohydrate 100 mg Q12HR PO 03/18/24 10:00 03/18/24 11:15 100 MG Examination: GENERAL:Abnormal, HEENT:Abnormal, LUNGS:Abnormal, CVS:Abnormal, ABDOMEN:Abnormal laboratory and microbiology Laboratory Tests 03/18/24 06:01 03/17/24 06:40 Test 1/19/25 06:01 Range/Units Serum Glucose 90 74-106 mg/dL Problem List/Assessment/Plan Problem List/Assessment/Plan chest pain ACS lupus HTN HL pt seen with RN pt wishes to proceed with [facility] echo reviewed asa check coags informed consent obtained Plan discussed with: Patient Date of Service: Mar 18, 2024 Billing Provider: TERENCE KRISHNA MD Common Visit Codes: NOT BILLABLE TERENCE KRISHNA MD Mar 18, 2024 13:32
--- NOTE | 2024-03-18 13:40 | DVH ---
Exam: US THYROID TECHNIQUE: Multiple grayscale images of the thyroid gland with color doppler as indicated History: Nodules Comparison: None Findings: The right thyroid lobe measures 4.7 x 2.3 x 1.4 cm with heterogeneous echotexture. The left thyroid m easures 5.3 x 2.5 x 1.9 cm with heterogeneous echotexture. Normal color Doppler flow of the right lo be with hyperemia of the left lobe. The isthmus is thickened measuring 0.8 cm. 0.4 cm calcification in the superior right thyroid lobe. Nodule #1: 1.0 x 0.4 x 0.5 cm, inferior left thyroid lobe Composition: Solid or almost completely solid (2 points). Echogenicity: Hyperechoic or isoechoic (1 point). Shape: Wider than tall (0 points) Margin: Ill-defined (0 points). Echogenic foci: None or large comet tail artifacts (0 points). Total points: 3, TIRADS score 3: mildly suspicious: FNA >2.5 cm, F/U >1.5 cm Nodule #2: 0.9 x 0.7 x 0.9 cm, left thyroid lobe Composition: Solid or almost completely solid (2 points). Echogenicity: Hyperechoic or isoechoic (1 point). Shape: Wider than tall (0 points) Margin: Ill-defined (0 points). Echogenic foci: None or large comet tail artifacts (0 points). Total points: 3, TIRADS score 3: mildly suspicious: FNA >2.5 cm, F/U >1.5 cm Impression: 1. Heterogeneously enlarged thyroid lobes and isthmus. 2. Left thyroid nodules both TIRADS 3. No follow up needed by size criteria. 3. Left thyroid lobe hyperemia.
[2024-03-18 23:21] LABS: COVID19 ANTIGEN SOFIA FIA NEGATIVE (NEGATIVE); Rapid Influenza A Negative (Negative); Rapid Influenza B Negative (Negative)
[2024-03-19] VITALS (15 sets, daily range): BP systolic 121–137; BP diastolic 67–88; PULSE 61–95; RESP 13–21; TEMP 97.8–98.3; O2SAT 93–100
[2024-03-19 06:18] LABS: Urine Bacteria MOD /hpf (None Seen); Urine Blood Negative /uL (Negative); Urine Clarity Clear (Clear); Urine Color Light-Yellow (Yellow); Urine Mucus FEW (None Seen); Urine Protein, UAD Negative (Negative); Urine Specific Gravity 1.011 (1.001-1.035); Urine Squamous Epithelial Cell FEW /hpf (<5); Urine Urobilinogen Normal (Negative); Urine WBC 24 /hpf (0 - 5)
[2024-03-19 07:07] LABS: Basophils # (auto) 0 10 ^3/uL (0-0.2); Basophils % (auto) 0.6 % (0.0-2.0); Eosinophils # (auto) 0.4 10 ^3/uL (0-0.8); Hematocrit 40.2 % (36.0-46.0); Lymphocytes # (auto) 1.5 10 ^3/uL (0.4-5.4); Lymphocytes % (auto) 30.5 % (10.0-50.0); Mean Corpuscular Hemoglobin 28.1 pg (28.0-32.0); Mean Corpuscular Hgb Conc. 32.3 g/dL (32.0-36.0); Monocytes # (auto) 0.4 10 ^3/uL (0-1.3); Monocytes % (auto) 9.2 % (0.0-12.0); Neutrophils # (auto) 2.5 10 ^3/uL (1.6-8.6); Neutrophils % (auto) 51.7 % (37.0-80.0); Nucleated Red Blood Cells % 0.1 %; Platelet Count (auto) 273 10^3/uL (140-450); Red Blood Cells 4.62 10^6/uL (4.0-5.20); Red Cell Distribution Width 14.3 % (11.8-14.3); White Blood Cell 4.8 10^3/uL (4.4-10.8)
[2024-03-19 07:16] LABS: Anion Gap 7 (5-15); Carbon Dioxide 25 mmol/L (20-31); Partial Thromboplastin Time 27.6 SEC (24.5-34.5); Potassium 3.7 mmol/L (3.5-5.1); Prothrombin Time 10.6 sec (9.3-11.8); Sodium 141 mmol/L (136-145)
[2024-03-19 07:22] LABS: Blood Urea Nitrogen 17 mg/dL (9-23); Glucose 86 mg/dL (74-106)
[2024-03-19 07:24] LABS: Chloride 109 mmol/L (98-107)
[2024-03-19 07:25] LABS: Calcium 10.8 mg/dL (8.7-10.4)
[2024-03-19] MEDS: ANGIOMAX 250 MG VIAL IV ONE (11:40)
[2024-03-19] MEDS: VERAPAMIL 2.5MG/ML INJ 2ML VIAL IV ONE (11:40)
[2024-03-19] MEDS: HEPARIN SODIUM (PORCINE) 5000 UNITS/ML 1ML VIAL ONE (11:40)
[2024-03-19] MEDS: fentaNYL CITRATE 100 MCG/2 ML VL ONE (11:40)
[2024-03-19] MEDS: SODIUM CHL 0.9% 0 ML ONE (11:41)
[2024-03-19] MEDS: LIDOCAINE 2%HCL (LOCAL ANESTH.) INJ 10ml MDV ONE (11:41)
[2024-03-19] MEDS: MIDAZOLAM HCL 2MG/2ML 2ml VIAL (1mg/ml) ONE (11:41)
--- NOTE | 2024-03-19 12:17 | DVHPN2 ---
Progress Note Date Seen: Mar 19, 2024 Medical Necessity Reason Pt with a Central, PICC or Fol: No Subjective Patient reports: Feels better Other Systems: sp cath mild cad Objective vital signs Vital Sign Date Time Temp Pulse Resp B/P (MAP) Pulse Ox O2 Delivery O2 Flow Rate FiO2 03/19/24 09:28 96 Room Air 0.0 03/19/24 09:28 21 03/19/24 09:00 98.2 61 18 137/80 (99) 98.2 Total Intake and Output 03/18/24 03/18/24 03/19/24 15:00 23:00 07:00 Intake Total 480 ml 1960 ml 300 ml Balance 480 ml 1960 ml 300 ml medications Current Medications Medications Dose Ordered Sig/Darius Route Start Time Stop Time Status Last Admin Dose Admin Nitroglycerin 0.4 mg Q5MINP PRN SL 03/17/24 05:15 Levothyroxine Sodium 100 mcg QAM@0600 PO 03/17/24 06:00 03/18/24 05:22 100 MCG Ipratropium [place] 0.5 mg Q8HPRN PRN NEB 03/17/24 05:15 03/17/24 06:52 0.5 MG Amlodipine Besylate 10 mg DAILY PO 03/17/24 10:00 03/18/24 11:03 10 MG Albuterol 2.5 mg Q8HR PRN NEB 03/17/24 06:00 03/17/24 18:13 2.5 MG Aspirin 81 mg DAILY PO 03/18/24 10:00 03/18/24 11:02 81 MG Atorvastatin Calcium 40 mg HS PO 03/17/24 22:00 03/18/24 21:55 40 MG Enoxaparin Sodium 40 mg DAILY SC 03/18/24 10:00 Hold Furosemide 20 mg DAILY IV 03/18/24 10:00 03/18/24 11:16 20 MG Acetaminophen/ Hydrocodone Bitart 1 tab Q6HPRN PRN PO 03/18/24 04:00 03/18/24 16:17 1 TAB Doxycycline Monohydrate 100 mg Q12HR PO 03/18/24 10:00 03/18/24 21:55 100 MG Examination: GENERAL:Abnormal, HEENT:Abnormal, LUNGS:Abnormal, CVS:Abnormal, ABDOMEN:Abnormal laboratory and microbiology Laboratory Tests 1/20/25 06:19 Test 03/19/24 06:19 Range/Units Serum Glucose 86 74-106 mg/dL Microbiology Date/Time Source Procedure Growth Status 03/18/24 05:00 Nose MRSA Screen - Final Complete Problem List/Assessment/Plan Problem List/Assessment/Plan chest pain ACS lupus HTN HL pt seen with RN pt wishes to proceed with [facility] echo reviewed asa check coags informed consent obtained [facility] shows mild cad, microvascular disease asa statin dc home when medically stable Plan discussed with: Patient Date of Service: Mar 19, 2024 Billing Provider: TERENCE KRISHNA MD Common Visit Codes: NOT BILLABLE TERENCE KRISHNA MD Mar 19, 2024 12:17
--- NOTE | 2024-03-19 12:19 | DVHOP2 ---
Operative Report Operative Report CARDIAC CONSTRUCTION OR LE[employer] GANG [employer]ORER PROCEDURE REPORT [place], [place] Date of Service: 03/19/24 Fast Food Cook: Terence Krishna MD PROCEDURES PERFORMED: Coronary angiogram, left heart catheterization, conscious sedation administration and supervision, less than 15 minutes; fluoroscopy use and interpretation. PREOPERATIVE DIAGNOSES: ACS POSTOP DIAGNOSIS: mild CAD DESCRIPTION OF PROCEDURE: The patient or appropriate family signed informed consent understanding the risks, benefits and alternatives of the procedure, they wished to proceed. The patient was brought to the cardiac collaborative physician in n.p.o. state. The patient was prepped in a sterile fashion. Sedation was used per cardiac cath protocol. I administered 2 mL of 2% lidocaine to the right wrist. With an antegrade front wall puncture. I cannulated the right radial artery and placed a 6-Australian [place]ath slender. Next, an intra-arterial spasmolytic was administered. Next, a - 5 [place] catheter and were used for coronary angiogram and LVEDP measurement and pressure pullback. At the completion of procedure, all guides and wires were removed, and there were no immediate complications. 4000 U of iv heparin admin. FINDINGS: RCA: Moderate vessel off the right sinus of Valsalva, there is no severe flow limiting stenosis. 30% mid RCA stenosis. sluggish flow suggestive of microvascular disease LEFT MAIN: Moderate size left main, it bifurcates into LAD and circumflex. no severe stenosis. very short LM noted. CIRCUMFLEX: Moderate caliber vessel coming off the left main with no flow limiting stenosis. LAD: LAD is a moderate caliber vessel coming of the left main. no severe stenosis LVEDP of 8 mmhg CONCLUSIONS: 1. mild CAD PLAN: Aggressive risk factor modification and medical management for the patient. \ TERENCE KRISHNA MD Mar 19, 2024 12:18
[2024-03-19] MEDS ORDERED: ASPI1TAB19 PO (13:01)
--- NOTE | 2024-03-19 13:06 | DVHDS2 ---
Discharge Summary Date of Admission Mar 17, 2024 at 04:12 Date of Discharge: Mar 19, 2024 Labs/Diagnostic Data: Laboratory Results Test 03/19/24 06:19 03/19/24 05:00 03/18/24 22:37 03/18/24 06:01 White Blood Count 4.8 10^3/uL (4.4-10.8) Red Blood Count 4.62 10^6/uL (4.0-5.20) Hemoglobin 13.0 g/dL (12.2-16.2) Hematocrit 40.2 % (36.0-46.0) Mean Corpuscular Volume 87.0 fL (80.0-100.0) Mean Corpuscular Hemoglobin 28.1 pg (28.0-32.0) Mean Corpuscular Hemoglobin Concent 32.3 g/dL (32.0-36.0) Red Cell Distribution Width 14.3 % (11.8-14.3) Platelet Count 273 10^3/uL (140-450) Mean Platelet Volume 7.5 fL (6.9-10.8) Neutrophils (%) (Auto) 51.7 % (37.0-80.0) Lymphocytes (%) (Auto) 30.5 % (10.0-50.0) Monocytes (%) (Auto) 9.2 % (0.0-12.0) Eosinophils (%) (Auto) 8.0 % (0.0-7.0) Basophils (%) (Auto) 0.6 % (0.0-2.0) Neutrophils # (Auto) 2.5 10 ^3/uL (1.6-8.6) Lymphocytes # (Auto) 1.5 10 ^3/uL (0.4-5.4) Monocytes # (Auto) 0.4 10 ^3/uL (0-1.3) Eosinophils # (Auto) 0.4 10 ^3/uL (0-0.8) Basophils # (Auto) 0 10 ^3/uL (0-0.2) Nucleated Red Blood Cells 0.1 % Prothrombin Time 10.6 sec (9.3-11.8) Prothrombin Time INR 1.00 (0.9-1.15) Activated Partial Thromboplast Time 27.6 SEC (24.5-34.5) Sodium Level 141 mmol/L (136-145) Potassium Level 3.7 mmol/L (3.5-5.1) Chloride Level 109 mmol/L (98-107) Carbon Dioxide Level 25 mmol/L (20-31) Anion Gap 7 (5-15) Blood Urea Nitrogen 17 mg/dL (9-23) Creatinine 0.85 mg/dL (0.550-1.02) Glomerular Filtration Rate Calc 73 mL/min (>90) BUN/Creatinine Ratio 20.0 (10.0-20.0) Serum Glucose 86 mg/dL (74-106) Calcium Level 10.8 mg/dL (8.7-10.4) Urine Color Light-yellow (Yellow) Urine Clarity Clear (Clear) Urine pH 6.0 (5.0-9.0) Urine Specific [place] 1.011 (1.001-1.035) Urine Protein Negative (Negative) Urine Ketones Negative (Negative) Urine Blood Negative /uL (Negative) Urine Nitrite Negative (Negative) Urine Bilirubin Negative (Negative) Urine Urobilinogen Normal mg/dL (Negative) Urine Leukocyte Esterase 2+ /uL (Negative) Urine RBC 1 /hpf (0 - 4) Urine WBC 24 /hpf (0 - 5) Urine Squamous Epithelial Cells Few /hpf (<5) Urine Bacteria Mod /hpf (None Seen) Urine Mucus Few (None Seen) Urine Glucose Normal mg/dL (Normal) Influenza Type A Antigen Negative (Negative) Influenza Type B Antigen Negative (Negative) SARS-CoV-2 Antigen (Rapid) Negative (NEGATIVE) Total Bilirubin 0.8 mg/dL (0.2-1.0) Aspartate Amino Transferase (AST) 19 U/L (13-40) Alanine Aminotransferase (ALT) 15 U/L (7-40) Alkaline Phosphatase 82 U/L (46-116) B-Type Natriuretic Peptide 55.26 pg/mL (0-100) Total Protein 6.7 g/dL (5.7-8.2) Albumin 4.0 g/dL (3.2-4.8) Test 03/17/24 10:30 03/17/24 06:40 Troponin I High Sensitivity 18 ng/L (</=34) Triglycerides Level 37 mg/dL (< 150) Cholesterol Level 147 mg/dL (< 200) LDL Cholesterol 93 mg/dL (< 100) HDL Cholesterol 50 mg/dL (40-59) Vitamin B12 Level 526 pg/mL (211-911) Thyroid Stimulating Hormone (TSH) 1.11 uIU/mL (0.55-4.78) Other Laboratory Tests 03/19/24 06:19 Brief Hx & Hospital Course: Final diagnoses: Chest pain due to mild coronary artery disease, possibly angina due to 30% stenosis of the mid RCA Right coronary artery stenosis HTN Dyslipidemia Hypothyroidism Lupus Migraine 73-year-old female who was admitted for chest pain. Troponins were negative Cardiology recommended a heart catheterization which was done this morning and showed a 30% stenosis of the mid right coronary artery, medical management was recommended The patient takes aspirin and Lipitor at home Four hypertension she takes amlodipine She has hypothyroidism She has migraine headache Patient can be discharged home to continue same management with aspirin and Lipitor and the rest of her medications Diet and exercise Follow up with the primary care physician as soon as possible Condition at Discharge: Stable Final Diagnosis/Problems List Chest pain HTN Dyslipidemia Hypothyroidism Lupus Discharge Disposition: Home SNF Discharge Will this Physician continue t: No Discharge Instruct/Medications Diet: Cardiac 2g Na,low cholest Activity: No Restrictions, As Tolerated Follow Up/Referral: PCP ELISHA Medications: Same home meds Lipitor Aspirin Discharge Statement: "Patient was advised to return to the ER or call 911 if any headaches, dizziness, shortness of breath, chest pain, abdominal pain, bleeding, fevers, or worsening of medical condition. Patient was counseled about treatment plan, medications, possible side effects, patientverbalized understanding. All questions were answered to the best of my ability. This discharge took greater then 30 minutes in planning, reviewing documentation, counseling the patient, and discussing with other team members." ASSESSMENT ASSESSMENT Assessment Chest pain HTN Dyslipidemia Hypothyroidism Lupus Date of Service: Mar 19, 2024 Billing Provider: LUIZ HARTMAN MD Common Visit Codes: [id number] DISCH DAY >30min LUIZ HARTMAN MD Mar 19, 2024 13:06
[2024-03-19] MEDS: SUMAtriptan SUCCINATE 25 MG TAB PO ONE (15:11)
[2024-03-20] VITALS (7 sets, daily range): BP systolic 122–149; BP diastolic 76–86; PULSE 89–101; RESP 18–19; TEMP 97.3–98.6; O2SAT 96–98
[2024-03-20 07:50] LABS: Alanine Aminotransferase 14 U/L (7-40); Albumin 4.4 g/dL (3.2-4.8); Alkaline Phosphatase 85 U/L (46-116); Anion Gap 9 (5-15); Aspartate Aminotransferase 18 U/L (13-40); BUN/Creatinine Ratio 26.4 (10.0-20.0); Bilirubin, Total 0.9 mg/dL (0.2-1.0); Blood Urea Nitrogen 19 mg/dL (9-23); Carbon Dioxide 24 mmol/L (20-31); Chloride 107 mmol/L (98-107); Glucose 97 mg/dL (74-106); Potassium 3.5 mmol/L (3.5-5.1); Sodium 140 mmol/L (136-145); Total Protein 7.9 g/dL (5.7-8.2)
[2024-03-20 08:00] LABS: Calcium 10.5 mg/dL (8.7-10.4)
--- NOTE | 2024-03-20 12:37 | DVHPN2 ---
Progress Note Date Seen: Mar 20, 2024 Medical Necessity Reason Pt with a Central, PICC or Fol: No Subjective Patient reports: Feels better Objective vital signs Vital Sign Date Time Temp Pulse Resp B/P (MAP) Pulse Ox O2 Delivery O2 Flow Rate FiO2 03/20/24 11:43 97.3 91 19 98 03/20/24 10:00 Room Air* 0 21 03/20/24 09:58 119/72 Total Intake and Output 03/19/24 03/19/24 03/20/24 14:59 22:59 06:59 Intake Total 790 ml 200 ml Balance 790 ml 200 ml medications Current Medications Medications Dose Ordered Sig/Darius Route Start Time Stop Time Status Last Admin Dose Admin Nitroglycerin 0.4 mg Q5MINP PRN SL 03/17/24 05:15 Levothyroxine Sodium 100 mcg QAM@0600 PO 03/17/24 06:00 03/20/24 05:32 100 MCG Ipratropium [place] 0.5 mg Q8HPRN PRN NEB 03/17/24 05:15 03/17/24 06:52 0.5 MG Amlodipine Besylate 10 mg DAILY PO 03/17/24 10:00 03/20/24 09:58 10 MG Albuterol 2.5 mg Q8HR PRN NEB 03/17/24 06:00 03/17/24 18:13 2.5 MG Aspirin 81 mg DAILY PO 03/18/24 10:00 03/20/24 09:57 81 MG Atorvastatin Calcium 40 mg HS PO 03/17/24 22:00 03/19/24 21:30 40 MG Enoxaparin Sodium 40 mg DAILY SC 03/18/24 10:00 03/20/24 10:03 40 MG Furosemide 20 mg DAILY IV 03/18/24 10:00 03/20/24 09:58 20 MG Acetaminophen/ Hydrocodone Bitart 1 tab Q6HPRN PRN PO 03/18/24 04:00 03/20/24 03:54 1 TAB Doxycycline Monohydrate 100 mg Q12HR PO 03/18/24 10:00 03/20/24 09:58 100 MG Examination: GENERAL:Abnormal, HEENT:Abnormal, LUNGS:Abnormal, CVS:Abnormal, ABDOMEN:Abnormal laboratory and microbiology Laboratory Tests 03/20/24 06:30 03/19/24 06:19 Test 03/20/24 06:30 Range/Units Serum Glucose 97 74-106 mg/dL Microbiology Date/Time Source Procedure Growth Status 03/18/24 05:00 Nose MRSA Screen - Final Complete Problem List/Assessment/Plan Problem List/Assessment/Plan chest pain ACS lupus HTN HL pt seen with RN pt wishes to proceed with [facility] echo reviewed asa check coags informed consent obtained [facility] shows mild cad, microvascular disease asa statin dc home when medically stable Plan discussed with: Patient My Orders My Orders Orders - TERENCE KRISHNA MD Procedure Category Date Status Time Post Cath Vital Signs AHMET 03/19/24 In Process Q 15min Post Cath Activity AHMET 03/19/24 In Process Protocol 12:49 Communication Order ORDERS 03/19/24 Transmitted 12:49 Cardiac DIET 03/19/24 Transmitted Diet-2gna,Lofat,Lochol Lunch Date of Service: Mar 20, 2024 Billing Provider: TERENCE KRISHNA MD Common Visit Codes: NOT BILLABLE TERENCE KRISHNA MD Mar 20, 2024 12:37
--- NOTE | 2024-03-20 14:59 | DVHPN2 ---
Subjective DC Home Changes from previous H/P or p: No Changes Eyes: No Pain, No Vision change, No Conjunctivae inflammation, No Eyelid inflammation, No Other, No Redness ENT: No Ear pain, No Ear discharge, No Nose pain, No Nose discharge, No Nose congestion, No Mouth pain, No Mouth swelling, No Throat pain, No Throat swelling, No Other Cardiovascular: No Chest Pain, No Palpitations, No Orthopnea, No Paroxysmal Noc. Dyspnea, No Edema, No Lt Headedness, No Other Respiratory: No Cough, No Dry, No Shortness of breath, No SOB with excertion, No Wheezing, No Hemoptysis, No Pleuritic Pain, No Sputum, No Other Gastrointestinal: No Nausea, No Vomiting, No Abdominal Pain, No Diarrhea, No Constipation, No Melena, No Hematochezia, No Other Genitourinary: No Dysuria, No Frequency, No Incontinence, No Hematuria, No Retention, No Other Musculoskeletal: No other, No neck pain, No shoulder pain, No arm pain, No back pain, No hand pain, No leg pain, No foot pain Skin: No Rash, No Lesions, No Jaundice, No Bruising, No Other Objective Vitals Vital Signs Date Time Temp Pulse Resp B/P (MAP) Pulse Ox O2 Delivery O2 Flow Rate FiO2 03/20/24 11:43 97.3 91 19 98 03/20/24 10:00 Room Air* 0 21 03/20/24 09:58 119/72 Intake/Output Intake and Output 03/20/24 07:00 Intake Total 990 ml Balance 990 ml Intake Oral 990 ml # Voids 8 # Bowel Movements 1 General Appearance: Alert, Oriented X3, Cooperative, No acute distress HEENT: Atraumatic Lungs: Clear to auscultation Cardiovascular: Regular rate, Normal S1, Normal S2 Abdomen: Normal bowel sounds, Soft Psych/Mental Status: Mental status NL Laboratory Results Laboratory Tests 03/19/24 06:19 03/20/24 06:30 Chemistry Test 03/20/24 06:30 Albumin 4.4 g/dL (3.2-4.8) Calcium Level 10.5 mg/dL (8.7-10.4) H Total Protein 7.9 g/dL (5.7-8.2) LFT Test 03/20/24 06:30 Alanine Aminotransferase (ALT) 14 U/L (7-40) Alkaline Phosphatase 85 U/L (46-116) Aspartate Amino Transferase (AST) 18 U/L (13-40) Total Bilirubin 0.9 mg/dL (0.2-1.0) Urinalysis Test 03/19/24 05:00 Urine Color Light-yellow (Yellow) Urine Clarity Clear (Clear) Urine pH 6.0 (5.0-9.0) Urine Specific [place] 1.011 (1.001-1.035) Urine Protein Negative (Negative) Urine Ketones Negative (Negative) Urine Blood Negative /uL (Negative) Urine Nitrite Negative (Negative) Urine Bilirubin Negative (Negative) Urine Urobilinogen Normal mg/dL (Negative) Urine Leukocyte Esterase 2+ /uL (Negative) Urine RBC 1 /hpf (0 - 4) Urine WBC 24 /hpf (0 - 5) Urine Squamous Epithelial Cells Few /hpf (<5) Urine Bacteria Mod /hpf (None Seen) H Urine Mucus Few (None Seen) Urine Glucose Normal mg/dL (Normal) Microbiology Microbiology Date/Time Source Procedure Growth Status 03/18/24 05:00 Nose MRSA Screen - Final Complete Assessment/Plan Assessment/Plan Chest pain rule out coronary artery disease - s/p LJC no intervention Thyroid Nodules- US done Possible Bronchopneumonia Hypertension- Monitor and adjust meds Dyslipidemia Hypothyroidism Lupus Plan discussed with: Other Date of Service: Mar 20, 2024 Billing Provider: ANJU LEZAMA MD Common Visit Codes: [id number] INP/OBS CARE(LOW) ANJU LEZAMA MD Mar 20, 2024 14:59
== END 2024-03-20 12:32 | disposition home or self-care (01) | DRG 286 ==
LOC: TELE-CENTR 04:12 → CENTRAL 05:13 → TELE-CENTR 06:28
PROVIDERS: ADMIT Internal Medicine; ATTEND Internal Medicine
PROC: 4A023N7 Measurement of Cardiac Sampling and Pressure, Left Heart, Percutaneous Approach (ICD-10-PCS; principal; 2024-03-19)
PROC: B211YZZ Fluoroscopy of Multiple Coronary Arteries using Other Contrast (ICD-10-PCS; 2024-03-19)
DX: I25.118 Atherosclerotic heart disease of native coronary artery with other forms of angina pectoris (principal); J18.0 Bronchopneumonia, unspecified organism; I10 Essential (primary) hypertension; E78.5 Hyperlipidemia, unspecified; E03.9 Hypothyroidism, unspecified; G43.909 Migraine, unspecified, not intractable, without status migrainosus; J45.909 Unspecified asthma, uncomplicated; M32.9 Systemic lupus erythematosus, unspecified; Z82.49 Family history of ischemic heart disease and other diseases of the circulatory system; Z83.3 Family history of diabetes mellitus; Z82.3 Family history of stroke; Z81.8 Family history of other mental and behavioral disorders; Z79.82 Long term (current) use of aspirin
CPT/HCPCS: 36415; 71045; 71250; 76536; 80048; 80053; 80061; 81001; 82607; 83880; 84443; 84484; 85025; 85610; 85730; 87081; 87426; 87804; 93306; 93458; 94640; 97163; 99152; G0378; J2003; J2250

== ENCOUNTER → 2024-06-20 | Outpatient (CLI) | payer OTHER ==
[~2024-06-20] MED LIST changes: +ALBUAER3 IN; +AMLO1TAB22 PO; +ASPI1TAB19 PO; +ATOR20TA PO; +AZIT500T66 PO; -CEPH500C PO; +HYDR-4798 PO; +LEVO-849 PO
[2024-06-20 08:41] LABS: Basophils # (auto) 0 10 ^3/uL (0-0.2); Basophils % (auto) 0.3 % (0.0-2.0); Eosinophils # (auto) 0.3 10 ^3/uL (0-0.8); Eosinophils % (auto) 8.8 % (0.0-7.0); Hematocrit 39.4 % (36.0-46.0); Hemoglobin 13.1 g/dL (12.2-16.2); Lymphocytes # (auto) 1.2 10 ^3/uL (0.4-5.4); Lymphocytes % (auto) 31.9 % (10.0-50.0); Mean Corpuscular Hgb Conc. 33.4 g/dL (32.0-36.0); Monocytes # (auto) 0.3 10 ^3/uL (0-1.3); Monocytes % (auto) 8.6 % (0.0-12.0); Neutrophils # (auto) 1.9 10 ^3/uL (1.6-8.6); Neutrophils % (auto) 50.4 % (37.0-80.0); Nucleated Red Blood Cells % 0.1 %; Platelet Count (auto) 240 10^3/uL (140-450); Red Cell Distribution Width 15.2 % (11.8-14.3); White Blood Cell 3.8 10^3/uL (4.4-10.8)
[2024-06-20 08:46] LABS: Urine Amorphous Crystal FEW /hpf (None Seen); Urine Bacteria FEW /hpf (None Seen); Urine Blood Negative /uL (Negative); Urine Clarity Turbid (Clear); Urine Color Light-Yellow (Yellow); Urine Mucus FEW (None Seen); Urine Protein, UAD Negative (Negative); Urine Specific Gravity 1.013 (1.001-1.035); Urine Squamous Epithelial Cell FEW /hpf (<5); Urine Urobilinogen Normal (Negative); Urine WBC 110 /HPF (0-5); Urine pH 7.5 (5.0-9.0)
[2024-06-20 09:44] LABS: Alanine Aminotransferase 18 U/L (7-40); Albumin 4.5 g/dL (3.2-4.8); Alkaline Phosphatase 87 U/L (46-116); Anion Gap 8 (5-15); Aspartate Aminotransferase 21 U/L (13-40); BUN/Creatinine Ratio 14.7 (10.0-20.0); Blood Urea Nitrogen 10 mg/dL (9-23); Carbon Dioxide 26 mmol/L (20-31); Cholesterol 173 mg/dL (< 200); Glucose 87 mg/dL (74-106); HDL Cholesterol 55 mg/dL (40-59); Magnesium 2.1 mg/dL (1.6-2.6); Potassium 3.6 mmol/L (3.5-5.1); Sodium 142 mmol/L (136-145); Total Protein 7.7 g/dL (5.7-8.2); Triglycerides 57 mg/dL (< 150)
[2024-06-20 09:45] LABS: Bilirubin, Total 0.8 mg/dL (0.2-1.0)
[2024-06-20 09:51] LABS: Chloride 108 mmol/L (98-107); LDL Cholesterol 113 mg/dL (< 100)
[2024-06-20 10:31] LABS: Uric Acid 3.9 mg/dL (3.1-7.8)
[2024-06-21 18:39] LABS: Free T4 (Free Thyroxine) 1.34 ng/dL (0.89-1.76)
== END | disposition home or self-care (01) ==
LOC: LAB 08:02
PROVIDERS: ATTEND Internal Medicine
DX: E03.9 Hypothyroidism, unspecified (principal); M17.12 Unilateral primary osteoarthritis, left knee; G43.909 Migraine, unspecified, not intractable, without status migrainosus; G89.29 Other chronic pain; Z79.899 Other long term (current) drug therapy
CPT/HCPCS: 36415; 80053; 80061; 81001; 82306; 82607; 83036; 83540; 83550; 83735; 84439; 84443; 84550; 85025

== ENCOUNTER → 2024-11-16 | Outpatient (CLI) | payer OTHER ==
[2024-11-16 09:41] LABS: Hematocrit 39.6 % (36.0-46.0); Hemoglobin 13.0 g/dL (12.2-16.2); Mean Corpuscular Hemoglobin 27.7 pg (28.0-32.0); Mean Corpuscular Volume 84.6 fL (80.0-100.0); Nucleated Red Blood Cells % 0.0 %
[2024-11-16 10:04] LABS: Alanine Aminotransferase 15 U/L (7-40); Albumin 4.5 g/dL (3.2-4.8); Alkaline Phosphatase 94 U/L (46-116); Anion Gap 11 (5-15); BUN/Creatinine Ratio 16.9 (10.0-20.0); Bilirubin, Total 1.0 mg/dL (0.2-1.0); Blood Urea Nitrogen 12 mg/dL (9-23); Calcium 9.6 mg/dL (8.7-10.4); Carbon Dioxide 25 mmol/L (20-31); Cholesterol 152 mg/dL (< 200); Glucose 91 mg/dL (74-106); HDL Cholesterol 50 mg/dL (40-59); Sodium 143 mmol/L (136-145); Total Protein 8.2 g/dL (5.7-8.2); Triglycerides 59 mg/dL (< 150)
[2024-11-16 10:09] LABS: Chloride 107 mmol/L (98-107); Potassium 3.3 mmol/L (3.5-5.1)
[2024-11-16 10:20] LABS: Uric Acid 3.9 mg/dL (3.1-7.8)
[2024-11-16 14:40] LABS: Urine Budding Yeast FEW /hpf (None Seen); Urine Protein, UAD TRACE (Negative)
== END | disposition home or self-care (01) ==
LOC: LAB 08:48
PROVIDERS: ATTEND Internal Medicine
DX: E11.9 Type 2 diabetes mellitus without complications (principal); E78.49 Other hyperlipidemia; E61.2 Magnesium deficiency; E79.0 Hyperuricemia without signs of inflammatory arthritis and tophaceous disease; E55.9 Vitamin D deficiency, unspecified; D51.9 Vitamin B12 deficiency anemia, unspecified; R82.79 Other abnormal findings on microbiological examination of urine; R82.90 Unspecified abnormal findings in urine; R82.998 Other abnormal findings in urine; R94.6 Abnormal results of thyroid function studies; R68.89 Other general symptoms and signs
CPT/HCPCS: 36415; 80053; 80061; 81001; 82306; 82607; 82746; 83036; 84443; 84480; 84550; 85025; 87086

== ENCOUNTER 2025-01-30 10:15 | Outpatient (CLI) | payer OTHER | END 2025-01-30 17:00 | disposition home or self-care (01) | LOC: LAB 10:15 | PROVIDERS: ATTEND Internal Medicine | DX: E78.49 Other hyperlipidemia (principal); E61.2 Magnesium deficiency; E79.0 Hyperuricemia without signs of inflammatory arthritis and tophaceous disease; R78.89 Finding of other specified substances, not normally found in blood; R68.89 Other general symptoms and signs; R73.09 Other abnormal glucose; R94.6 Abnormal results of thyroid function studies; R82.998 Other abnormal findings in urine; E55.9 Vitamin D deficiency, unspecified; R82.79 Other abnormal findings on microbiological examination of urine; D51.9 Vitamin B12 deficiency anemia, unspecified | CPT/HCPCS: 82306; 87086 ==